=== PATIENT | male | born 1980 | race Hispanic/Latino ===

== ENCOUNTER 2019-08-06 00:42 | Emergency (ER) | payer SELFPAY ==
--- NOTE | 2019-08-06 02:04 | Cat Scan Report ---
Head CT without intravenous contrast INDICATION: Headache COMPARISON: None FINDINGS: The ventricles are normal in size and position. No hemorrhage or extra-axial fluid collecti on. No edema or mass effect. No focal infarct seen. Portions of the sinuses visualized are clear. No skull fracture identified. IMPRESSION: Negative head CT Automated exposure control was utilized to diminish radiation dose Signer Name: Dante De La Cruz MD Signed: 08/06/2019 1:59 AM Workstation Name: [id number]
--- NOTE | 2019-08-06 03:58 | Emergency Department Report ---
ED Head Trauma HPI - General Chief complaint: Head Injury Stated complaint: HEAD INJURY Source: patient Mode of arrival: Ambulatory Limitations: No Limitations - History of Present Illness Initial comments: Patient is a 39-year-old white male who presents to the ED with complaint of persistent headache and swollen right temporal scalp with mild abrasion after a metallic latch over a trailer hit him on the head about 3 hours ago. Patient states that he has been feeling lightheaded with blurry vision and headache since the accident occurred. The patient denies nausea, vomiting, loss of consciousness, dizziness, syncope, palpitations, chest pain or shortness of breath, neck pain, vision loss, speech changes or hearing loss. Patient states that he took ibuprofen tablets prior to arrival in the ED for headache. MD Complaint: head injury, head pain, other (headache) -: Sudden, hour(s) (3) Arrival Conditions: Positive: other (walking) Mechanism of Injury: work related injury, machine or tool related (trailed latch hit him on head) Location: temporal (right) Loss of Consciousness: no Previous Trauma to this Area: No Place: work Radiation: none Severity: moderate Severity scale (0 -10): 6 Quality: sharp, aching Consistency: constant Provoking factors: none known Other Injuries: none Associated Symptoms: denies other symptoms. denies: confusion, amnesia, repetitive questioning, vision changes, nausea, vomiting, vertigo, syncope, numbness, weakness, tingling, neck pain - Related Data Allergies/Adverse reactions: Allergies Allergy/AdvReac Type Severity Reaction Status Date / Time No Known Allergies Allergy Verified 08/06/19 00:58 ED Review of Systems ROS: Stated complaint: HEAD INJURY Other details as noted in HPI Constitutional: denies: chills, fever Eyes: denies: eye pain, eye discharge, vision change ENT: denies: ear pain, throat pain Respiratory: denies: cough, shortness of breath, wheezing Cardiovascular: denies: chest pain, palpitations Endocrine: no symptoms reported Gastrointestinal: denies: abdominal pain, nausea, diarrhea Genitourinary: denies: urgency, dysuria Musculoskeletal: denies: back pain, joint swelling, arthralgia Skin: other (swollen, painful right temporal scalp with mild depression). d enies: rash, lesions Neurological: headache. denies: weakness, paresthesias Psychiatric: denies: anxiety, depression Hematological/Lymphatic: denies: easy bleeding, easy bruising ED Past Medical Hx - Past Medical History Previous Medical History?: No - Surgical History Past Surgical History?: Yes Additional Surgical History: hand surgery - Social History Smoking Status: Current Every Day Smoker Substance Use Type: None ED Physical Exam - General Limitations: No Limitations General appearance: alert, in no apparent distress - Head Head exam: Present: other (palpable moderately tender and swollen right temporal scalp) - Eye Eye exam: Present: normal appearance, PERRL, EOMI Pupils: Present: normal accommodation - ENT ENT exam: Present: normal exam, normal orophraynx, mucous membranes moist, TM's normal bilaterally, normal external ear exam - Neck Neck exam: Present: normal inspection, full ROM - Respiratory Respiratory exam: Present: normal lung sounds bilaterally. Absent: respiratory distress, wheezes, rhonchi, chest wall tenderness, accessory muscle use - Cardiovascular Cardiovascular Exam: Present: regular rate, normal rhythm, normal heart sounds. Absent: systolic murmur, diastolic murmur, rubs, gallop - GI/Abdominal GI/Abdominal exam: Present: soft, normal bowel sounds. Absent: tenderness, hyperactive bowel sounds - Extremities Exam Extremities exam: Present: normal inspection, full ROM, normal capillary refill - Back Exam Back exam: Present: normal inspection, full ROM. Absent: muscle spasm, paraspinal tenderness - Neurological Exam Neurological exam: Present: alert, oriented X3, CN II-XII intact, normal gait, reflexes normal - Psychiatric Psychiatric exam: Present: normal affect, normal mood - Skin Skin exam: Present: warm, dry, intact, normal color, abrasion (right temporal scalp swelling, tenderness and abrasion), other (swollen tender right temporal scalp with mild abrasion). Absent: rash ED Course Vital Signs 08/06/19 01:04 Temperature 98.2 F Pulse Rate 64 Respiratory 18 Rate Blood Pressure 113/66 O2 Sat by Pulse 98 Oximetry - Radiology Data Radiology results: report reviewed, image reviewed Head CT scan without contrast shows no acute intracranial abnormalities or hemorrhage. - Medical Decision Making This is a 39-year-old male presented to the ED with headache and right temporal hematoma after hitting his head against a metallic latch of a trailer. In the ED, patient is alert and oriented 3 and is not in distress but appears to be in pain. Patient states that his pain is better and taken ibuprofen prior to arrival in the ED. Head CT scan without contrast shows no acute intracranial abnormalities or hemorrhage. On reevaluation, patient's pain is well-controlled at this time, lightheadedness is also resolved as well as blurry vision. Patient was discharged home and advised continue taking either ibuprofen or Tylenol as needed for pain and to follow-up with his primary care physician in 2-3 days for reevaluation or return to the ED immediately if his symptoms get worse. - Differential Diagnosis scalp contusion; severe headache; head injury; subarachnoid bleed - Core Measures AMI Core Measures Followed: No Measure Exclusions: not indicated - NEXUS Criteria Focal neurological deficit present: No Midline spinal tenderness present: No Altered level of consciousness: No Intoxication present: No Distracting injury present: No NEXUS results: C-Spine can be cleared clinically by these results. Imaging is not required. Critical care attestation.: If time is entered above; I have spent that time in minutes in the direct care of this critically ill patient, excluding procedure time. ED Disposition Clinical Impression: Acute post-traumatic headache, not intractable Contusion of scalp Qualifiers: Encounter type: initial encounter Qualified Code(s): S00.03XA - Contusion of scalp, initial encounter Head injury due to trauma Qualifiers: Encounter type: initial encounter Qualified Code(s): S09.90XA - Unspecified injury of head, initial encounter Disposition: DC-01 TO HOME OR SELFCARE Is pt being admited?: No Does the pt Need Aspirin: No Condition: Stable Instructions: Scalp Contusion in Adults (ED), Acute Headache (ED) Additional Instructions: Take regular ibuprofen or Tylenol as needed for pain with food. Follow-up with your primary care physician 3-5 days for reevaluation. Return to ED immediately if symptoms get worse. Referrals: [facility] [Outside] - 2-3 Days Time of Disposition: 03:55 Print Language: GRENADIAN
[2019-08-06 04:22] VITALS: BP 110/76
== END 2019-08-06 04:37 | disposition home or self-care (01) ==
LOC: ED 00:42
DX: S00.03XA Contusion of scalp, initial encounter (principal); G44.319 Acute post-traumatic headache, not intractable; F17.200 Nicotine dependence, unspecified, uncomplicated; Z98.890 Other specified postprocedural states; W22.8XXA Striking against or struck by other objects, initial encounter; Y93.89 Activity, other specified; Y92.89 Other specified places as the place of occurrence of the external cause; Y99.8 Other external cause status
CPT/HCPCS: 70450